=== PATIENT | male | born 1995 | race Hispanic/Latino ===

== ENCOUNTER 2021-01-18 14:28 | Emergency (ER) | payer SELFPAY ==
[2021-01-18] MEDS ORDERED: Sterile Water 10 ML ONE (17:13)
[2021-01-18] MEDS ORDERED: cefTRIAXone\\ROCEPHIN 250 MG VIAL ONE (17:13)
[2021-01-18] MEDS ORDERED: Azithromycin 250 MG TAB ONE (17:14)
[2021-01-21 09:09] LABS: Chlam.trachomatis by PCR,Urine Not Detected (NotDetected)
== END 2021-01-18 17:34 | disposition home or self-care (01) ==
LOC: CSHERS 14:28
DX: J02.9 Acute pharyngitis, unspecified (principal); Z20.2 Contact with and (suspected) exposure to infections with a predominantly sexual mode of transmission
CPT/HCPCS: 87081; 87430; 87491; 87591; 96372; 99283; J0696